=== PATIENT | male | born 1960 | race Caucasian/White ===

== ENCOUNTER 2016-01-27 10:30 | Inpatient (IN) | payer OTHER ==
[~2016-01-27] VITALS: Ht 182.9 cm; Wt 117.7 kg
[2016-03-17 13:56] VITALS: Ht 182.9 cm; Wt 117.7 kg
[2016-03-17 14:05] VITALS: BP_SYST 118; TEMP 97.9
[2016-03-28] VITALS (16 sets, daily range): BP systolic 108–150; RESP 16–20; TEMP 97–99.6
[2016-03-28] MEDS ORDERED: BACITRACIN 50,000 UNITS INJ IRRIG ONE (07:48)
[2016-03-28] MEDS ORDERED: BACITRACIN OINT TOPICAL ONE (07:48)
[2016-03-28] MEDS ORDERED: THROMBIN 5000 UNIT KIT TOPICAL ONE (07:48)
[2016-03-28] MEDS ORDERED: GELATIN SPONGE 100 CM2 TOPICAL ONE (07:48)
[2016-03-28] MEDS ORDERED: BUPIVACA/EPI 0.25% PF 30ML NERVEBLOCK ONE (07:48)
[2016-03-28] MEDS ORDERED: METOPROLOL XL 25 MG TAB PO SCH (09:00)
[2016-03-28] MEDS ORDERED: CEFAZOLIN 3,000 MG in SODIUM CHLORIDE 0.9% 100 ML IV ONE (09:45)
[2016-03-28] MEDS ORDERED: GLYCOPYRROLATE 0.2 MG/ML VIAL IV ONE ×2 (10:05→10:48)
[2016-03-28] MEDS ORDERED: LIDOCAINE 1% BUFFERED 1 ML SYR INTRADERM PRN (10:05)
[2016-03-28] MEDS ORDERED: MIDAZOLAM 2 MG/2 ML INJ IV ONE (10:05)
[2016-03-28] MEDS ORDERED: LACT RINGERS 1,000 ML IV SCH (10:05)
[2016-03-28] MEDS ORDERED: PHENYLEPHRINE 10 MG/ML VIAL IV ONE (10:48)
[2016-03-28] MEDS ORDERED: SUCCINYLCHOLINE 20 MG/ML VL IV ONE (10:48)
[2016-03-28] MEDS ORDERED: NEOSTIGMINE 10 MG/10 ML VIAL IV ONE (10:48)
[2016-03-28] MEDS ORDERED: ROCURONIUM 50 MG VIAL IV ONE (10:48)
[2016-03-28] MEDS ORDERED: ACETAMINOPHEN 1,000 MG/100 ML IV ONE (10:48)
[2016-03-28] MEDS ORDERED: PROPOFOL 20 ML PER ML IV ONE (10:48)
[2016-03-28] MEDS ORDERED: ONDANSETRON 4 MG VIAL IV PUSH ONE (10:48)
[2016-03-28] MEDS ORDERED: FENTANYL 100 MCG/2 ML AMP IV ONE (10:48)
[2016-03-28] MEDS ORDERED: LIDOCAINE 2% SYR 5 ML IV ONE (10:48)
[2016-03-28] MEDS ORDERED: MEPERIDINE 25 MG/ML IV ONE (10:50)
[2016-03-28] MEDS ORDERED: MEPERIDINE 25 MG/ML ONE (10:51)
[2016-03-28] MEDS ORDERED: OXYCODONE 5 MG TAB PO PRN (13:35)
[2016-03-28] MEDS ORDERED: MEPERIDINE 25 MG/ML IV PRN (13:35)
[2016-03-28] MEDS ORDERED: MORPHINE 2 MG/ML SYR IV PRN (13:35)
[2016-03-28] MEDS ORDERED: MORPHINE 4 MG/ML SYR IV PRN (13:35)
[2016-03-28] MEDS ORDERED: ONDANSETRON 4 MG VIAL IV PRN ×2 (13:35→15:10)
[2016-03-28] MEDS ORDERED: SODIUM CHLORIDE 0.9% 1,000 ML IV SCH (15:10)
[2016-03-28] MEDS ORDERED: ACETAMINOPHEN 325 MG TAB PO PRN (15:10)
[2016-03-28] MEDS ORDERED: CHLORASEPTIC 180 ML BTL PO PRN (15:10)
[2016-03-28] MEDS ORDERED: OXYCODONE/APAP 5/325 TAB PO PRN ×2 (15:10)
[2016-03-28] MEDS: DILAUDID 1 MG/ML AMP IV PRN ×2 (15:13→15:25)
[2016-03-28] MEDS ORDERED: OXYCODONE/APAP 7.5/325 TAB PO PRN (15:15)
[2016-03-28] MEDS: OXYCODONE/APAP 7.5/325 TAB PO PRN (16:32)
[2016-03-28] MEDS: LISINOPRIL 10 MG TAB PO SCH (16:38)
[2016-03-28] MEDS: PANTOPRAZOLE 40 MG TAB PO SCH (16:39)
[2016-03-28] MEDS: METOPROLOL XL 25 MG TAB PO SCH (16:39)
[2016-03-28] MEDS: MORPHINE 4 MG/ML SYR IV PRN ×3 (17:58→22:49)
[2016-03-28] MEDS: DOCUSATE SOD 100 MG CAP PO SCH (21:02)
[2016-03-29] MEDS: MORPHINE 4 MG/ML SYR IV PRN ×7 (00:28→21:20)
[2016-03-29] MEDS: OXYCODONE/APAP 7.5/325 TAB PO PRN ×5 (00:29→18:40)
[2016-03-29] MEDS: CYCLOBENZAPRINE 10 MG TAB PO PRN ×3 (00:36→21:21)
[2016-03-29 03:23] VITALS: BP_SYST 125; RESP 18; TEMP 97.7
[2016-03-29] MEDS: PANTOPRAZOLE 40 MG TAB PO SCH (06:41)
[2016-03-29 07:37] VITALS: BP_SYST 131; RESP 18; TEMP 97.6
[2016-03-29] MEDS: METOPROLOL XL 25 MG TAB PO SCH (08:42)
[2016-03-29] MEDS: LISINOPRIL 10 MG TAB PO SCH (08:42)
[2016-03-29] MEDS: DOCUSATE SOD 100 MG CAP PO SCH ×2 (08:43→21:21)
[2016-03-29 11:07] VITALS: BP_SYST 130; RESP 18; TEMP 97.8
[2016-03-29] MEDS ORDERED: CALC CARB 500 MG CHEWTAB PO PRN (15:35)
[2016-03-29] MEDS ORDERED: MISSING DOSE XX ONE (16:10)
[2016-03-29 16:22] VITALS: BP_SYST 110; RESP 18; TEMP 97.6
[2016-03-29 19:12] VITALS: BP_SYST 90; RESP 18; TEMP 97.3
[2016-03-29 23:19] VITALS: BP_SYST 105; RESP 18; TEMP 97.6
[2016-03-30] MEDS: MORPHINE 4 MG/ML SYR IV PRN ×6 (00:50→16:51)
[2016-03-30 03:20] VITALS: BP_SYST 97; RESP 18; TEMP 97.6
[2016-03-30] MEDS: OXYCODONE/APAP 7.5/325 TAB PO PRN ×2 (03:20→20:28)
[2016-03-30] MEDS: CYCLOBENZAPRINE 10 MG TAB PO PRN (03:20)
[2016-03-30] MEDS: PANTOPRAZOLE 40 MG TAB PO SCH (06:42)
[2016-03-30 07:09] VITALS: BP_SYST 107; RESP 18; TEMP 97.9
[2016-03-30] MEDS: LISINOPRIL 10 MG TAB PO SCH (08:44)
[2016-03-30] MEDS: METOPROLOL XL 25 MG TAB PO SCH (08:44)
[2016-03-30] MEDS: DOCUSATE SOD 100 MG CAP PO SCH ×2 (08:44→20:27)
[2016-03-30 10:59] VITALS: BP_SYST 106; RESP 18; TEMP 98.2
[2016-03-30 15:15] VITALS: BP_SYST 111; RESP 18; TEMP 98
[2016-03-30 19:53] VITALS: BP_SYST 110; RESP 18; TEMP 98.1
[2016-03-30 23:19] VITALS: BP_SYST 100; RESP 18; TEMP 98.2
[2016-03-31 03:55] VITALS: BP_SYST 137; RESP 18; TEMP 97.9
[2016-03-31] MEDS: PANTOPRAZOLE 40 MG TAB PO SCH (06:16)
[2016-03-31] MEDS: OXYCODONE/APAP 7.5/325 TAB PO PRN (06:16)
[2016-03-31 07:51] VITALS: BP_SYST 147; RESP 20; TEMP 98.2
[2016-03-31] MEDS: LISINOPRIL 10 MG TAB PO SCH (07:53)
[2016-03-31] MEDS: DOCUSATE SOD 100 MG CAP PO SCH (07:53)
[2016-03-31] MEDS: METOPROLOL XL 25 MG TAB PO SCH (07:53)
[2016-03-31] MEDS: MORPHINE 4 MG/ML SYR IV PRN (07:53)
[2016-03-31 09:47] VITALS: BP_SYST 147; RESP 20; TEMP 98.2
== END 2016-03-31 10:27 | disposition home or self-care (01) | DRG 520 ==
LOC: ENPENDDIS 03-28 09:36 → SDS 03-28 09:36 → EDSTATUS 03-28 12:35 → 5THW 03-28 16:21
PROVIDERS: ADMIT Neurological Surgery; ATTEND Neurological Surgery
PROC: 00NW0ZZ Release Cervical Spinal Cord, Open Approach (ICD-10-PCS; principal; 2016-03-28 12:20)
DX: M48.02 Spinal stenosis, cervical region (principal); I10 Essential (primary) hypertension; Z98.1 Arthrodesis status; E11.9 Type 2 diabetes mellitus without complications; F17.210 Nicotine dependence, cigarettes, uncomplicated; I25.10 Atherosclerotic heart disease of native coronary artery without angina pectoris; Z95.5 Presence of coronary angioplasty implant and graft
CPT/HCPCS: 76000; 82947; 94799